=== PATIENT | female | born 1930 | race Caucasian/White ===

== ENCOUNTER 2016-10-07 10:21 | Inpatient (IN) ==
[2016-10-07] MEDS ORDERED: SALINE LOCK IV FLUID XX ONE (12:21)
[2016-10-07 13:21] LABS: HEMATOCRIT 43.8 % (37.0-47.0); HEMOGLOBIN 14.8 g/dL (12.0-16.0); MCHC 33.8 g/dL (33-37); MCV 97.6 FL (81-99); MPV 10.8 FL (7.4-10.4); PLT 237 X1000 (130-400); RBC 4.49 XMIL (4.2-5.4)
[2016-10-07] MEDS: LOVENOX SUBQ SCH (13:45)
[2016-10-07] MEDS: CARDIZEM 100 MG/NS 100 MG/100 ML IVPB IV SCH (13:45)
[2016-10-07 13:46] LABS: AGAP 16; ALBUMIN 3.7 g/dL (3.5-5.0); ALKALINE PHOSPHATASE 73 U/L (32-104); BUN 26 mg/dL (8-22); CHLORIDE 88 mmol/L (98-107); COSMO 266; GOT 14 U/L (10-30); GPT 12 U/L (10-36); POTASSIUM 3.9 mmol/L (3.5-5.1); SODIUM 129 mmol/L (136-145); TCO2 25 mmol/L (25-35); TOTAL BILIRUBIN 1.17 mg/dL (0.20-1.00)
[2016-10-07 13:54] LABS: FREE T4 1.15 ng/dL (0.93-1.70)
[2016-10-07] MEDS ORDERED: SAMSCA PO ONE (13:58)
[2016-10-07] MEDS: LANOXIN IV SCH ×2 (14:53→21:23)
[2016-10-07 17:55] LABS: BANDS 6 % (0-1); LYMPHS 2 % (21-51); MONO 4 % (1-9)
[2016-10-07] MEDS ORDERED: LEVAQUIN 500 MG/D5W 500 MG/100 ML IVPB IV SCH (18:00)
--- NOTE | 2016-10-07 19:27 | Diag Imaging Result Doc PS360 ---
EXAM: CT THORAX W/O CONTRAST - 10/07/2016 HISTORY: pneumonitis TECHNIQUE: Without contrast per request of the referring provider COMPARISON: 11/14/2012 FINDINGS: There are emphysematous changes which are most prominent at the upper lobes, particularly on the right, and at the posterior right lower lobe. 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 There is mild pleural thickening/scarring along the right minor fissure which is stable. There is subsegmental atelectasis at the posterior right base. There is no other consolidation, pleural effusion, or pneumothorax identified. There are no abnormally enlarged mediastinal lymph nodes identified. There is been previous left mastectomy. There is a small cyst at the visualized inferior left lobe of liver similar to the previous exam. IMPRESSION: Emphysema. 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 Subsegmental atelectasis at posterior right base. No discrete pneumonia. Electronically signed by Jericho Guzman 10/07/2016 7:24 PM
--- NOTE | 2016-10-07 19:53 | CONSULTATION ---
DATE OF CONSULTATION: 10/07/2016 INDICATION: Irregular heartbeat, epigastric discomfort. HISTORY: Ms. Blanco presented to Dr. Wheeler's office today with a 4-5 day history of feeling uncomfortable in the stomach, feeling nauseous, having poor balance, feeling like she could not walk straight. Upon presentation to Dr. Wheeler's office, they noted that her pulse was irregular, and a 12-lead electrocardiogram showed atrial fibrillation with a rapid response with a nonspecific ST-T abnormality and a relatively rightward axis. The patient has been admitted to the hospital for management. Intravenous Cardizem has been ordered and is about to be started. The patient denies having any chest pain. The patient denies having fever, cough, denies having swelling of the legs. Denies having syncope. She has felt some palpitations. She has no prior history of arrhythmia. PAST MEDICAL HISTORY: Her past medical history is positive for breast cancer which has been treated surgically and then by followup with Hematology. The patient has history of hypertension. She is not diabetic, never had a stroke or a heart attack. She said that several years ago she was told that she had some valvular abnormality by one of the previous [facility] cardiologists that used to come to [facility]. HOME MEDICATIONS: Her home medications at the time of this admission are listed as: 1. Cromolyn sodium spray daily. 2. Losartan/hydrochlorothiazide 100/12.5. 3. Amlodipine 2.5 daily. ALLERGIES: She has no reported allergies. PAST SURGICAL HISTORY: Positive for mastectomy for breast cancer. SOCIAL HISTORY: She is a . Her of 39 years about 2 years ago. She is presently living in a [facility] community. The patient has 3 grownup children, ages 58 to 64. She used to be a smoker, quit in 1978. The patient used to work in a grocery store, [employer], up until 1974. REVIEW OF SYSTEMS: The patient's review of systems is only remarkable for exertional dyspnea. No other issues. PHYSICAL EXAMINATION: Vital signs: Blood pressure is 96/52, temperature 97.7, pulse 92, respirations 16. General: She is awake, alert, oriented, elderly, in no distress. HEENT: Unremarkable. Chest: Diffusely diminished breath sounds bilaterally. Cardiac: Heart sounds are irregularly irregular without gallop or murmur. GI: Her abdomen is obese, nontender. No masses. No hepatomegaly. Extremities: Show palpable dorsalis pedis pulses bilaterally. No edema. Neurologic: Follows commands. She is slightly hard of hearing. Moves four extremities. Cranial nerves are normal. LABORATORY DATA: White count is 15,280, hemoglobin 14.8. Sodium 129, potassium 3.9, BUN 26, creatinine 1.5. IMPRESSION: 1. Patient presenting to doctor's office with complaint of discomfort in the upper abdomen, nausea, and is found to have an irregular pulse consistent with atrial fibrillation with a rapid response. 2. Abnormal EKG with diffuse ST-T abnormality. 3. Obesity. Body mass index is 33. 4. Patient has long-term history of being a former smoker and previous CT scans of the chest have indicated presence of emphysema. 5. History of hypertension. RECOMMENDATIONS: At this time, I would suggest to continue Cardizem. Because her blood pressure is marginally low, I will give her a few doses of digoxin to try to get her heart rate under control. Her sodium is low and her white count is very high. That might suggest the possibility of concomitant pneumonia. We may have to do some sort of chest imaging study to figure this out. We will discuss with Dr. Wheeler. Thank you again for the opportunity to participate in her evaluation. cc: MD Brandon Tabares MD
[2016-10-07] MEDS: LEVAQUIN 500 MG/D5W 500 MG/100 ML IVPB IV SCH (21:23)
--- NOTE | 2016-10-07 21:36 | Diag Imaging Result Doc PS360 ---
EXAM: CHEST-2 VIEWS - 10/07/2016 HISTORY: leukocytosis, tachycardia TECHNIQUE: Chest two views COMPARISON: 10/01/2016 FINDINGS: Heart size appears upper normal. There is tortuosity of the thoracic aorta similar to the previous exam. There are COPD/emphysematous changes. There is a left lower lung nodule which appears grossly stable. There is mild pleural thickening along the right minor fissure. There is mild prominence of markings at the posterior base of the chest. There is no dense consolidation or pneumothorax identified. IMPRESSION: COPD/emphysematous changes. Left lower lung nodule compatible with the granuloma seen on the subsequent CT scan. Mild pleural thickening along right minor fissure. Mild prominence of markings at posterior base of chest. No discrete pneumonia. Electronically signed by Jericho Guzman 10/07/2016 9:34 PM
[2016-10-08] MEDS: CARDIZEM 100 MG/NS 100 MG/100 ML IVPB IV SCH ×3 (01:11→17:42)
[2016-10-08] MEDS: LANOXIN IV SCH (01:40)
--- NOTE | 2016-10-08 07:19 | EKG Report ---
Test Performed on : 10/08/2016 06:32:16 AM Test Reason : atrial fibrillation Blood Pressure : / mmHG Vent. Rate : 089 BPM Atrial Rate : 102 BPM P-R Int : 000 ms QRS Dur : 090 ms QT Int : 390 ms P-R-T Axes : 000 052 245 degrees QTc Int : [address] \T\ T wave abnormality, consider inferolateral ischemia Prolonged QT Abnormal ECG No previous ECGs available Confirmed by Claudette WALDROP, Abrahan Bender ([id number]) on 10/08/2016 7:58:52 AM
[2016-10-08] MEDS ORDERED: HYZAAR 100/12.5 MG TAB PO SCH (09:00)
[2016-10-08] MEDS ORDERED: NORVASC PO SCH (09:00)
[2016-10-08] MEDS: COZAAR PO SCH (09:13)
--- NOTE | 2016-10-08 09:14 | PROGRESS NOTE ---
DATE: 10/08/2016 CHIEF COMPLAINT: Irregular heartbeat. SUBJECTIVE: Ms. Blanco is feeling better. Heart rate is better controlled on Cardizem. She is still having abdominal pain. Denies any cough. Heart rate appears to be better controlled. OBJECTIVE: Vital signs: Blood pressure 115/53. Temperature 98.2. Pulse 101. Respirations 18. General: She is awake, alert, oriented, in no distress, elderly, in good mood. HEENT: Unremarkable. Chest: Diffusely diminished breath sounds. No wheezes. Cardiac : Heart sounds are irregularly irregular. No gallop or murmur. Abdomen: Tender in the epigastric area. Bowel sounds are diminished. Extremities: Show good pulses. There is no obvious edema. Neurologic: She moves four extremities, follows commands. LABORATORY DATA: Blood work yesterday showed markedly elevated C reactive protein at 285 mg/L and her sedimentation rate was 42. Her differential on the white cell count was 88 % segmented neutrophils and 6% bands, indicating left shift, consistent with an acute infection. IMPRESSION: 1. Patient presenting with acute atrial fibrillation with rapid response, better controlled now. 2. Patient presenting with abdominal pain as initial symptom. Has blood work consistent with an acute infection with intense inflammation. This may indicate an intraabdominal process. Yesterday I obtained a CT scan of the chest that shows evidence of COPD, however, no convincing evidence of pneumonia which was my initial concern. The patient is presently on Levaquin. 3. History of hypertension. 4. History of hypothyroidism. RECOMMENDATIONS: At this time, I would suggest to consider obtaining a CT of the abdomen with contrast and further advice will be forthcoming. I am going to request a stat BMP and magnesium level. Further advice will be forthcoming. cc: MD Brandon Tabares MD [facility]
[2016-10-08 09:31] LABS: CALCIUM 8.5 mg/dL (8.8-10.2); POTASSIUM 3.8 mmol/L (3.5-5.1)
[2016-10-08] MEDS: LOVENOX SUBQ SCH (12:44)
[2016-10-08 12:50] LABS: URINE SOURCE CLEAN CATCH
[2016-10-08 12:57] LABS: BILIRUBIN URINE NEGATIVE (NEGATIVE); BLOOD URINE TRACE (NEGATIVE); COLOR YELLOW; GLUCOSE URINE NEGATIVE (NEGATIVE); LEUKOCYTES URINE MODERATE (NEGATIVE); NITRITE URINE NEGATIVE (NEGATIVE); PROTEIN URINE TRACE mg/dL (NEGATIVE); SP GRAVITY URINE 1.019; TURBIDITY URINE HAZY (CLEAR); URINE MICRO REVIEW NEEDED? YES; UROBILINOGEN URINE 2 mg/dL (NORMAL)
[2016-10-08 12:58] LABS: UR EPITHELIAL CELLS <10 /HPF (<10); URINE BACTERIA 4+ /HPF; URINE CULTURE NEEDED? YES; URINE RBC <10 /HPF (<10); URINE WBC TNTC /HPF (<10)
--- NOTE | 2016-10-08 18:00 | ECHO REPORT ---
ORDER DATE: 10/08/2016 INTERPRETING PHYSICIAN: Dr. Castro REQUESTING PHYSICIAN: CLINICAL INDICATIONS: This is an 86-year-old female with new onset atrial fibrillation. M-MODE MEASUREMENTS: Right ventricle: 2.8 cm. Left ventricle end diastole: 3.4 cm. Left ventricle end systole: 2.2 cm. Posterior wall: 1.2 cm. Interventricular septum: 1.2 cm. Left atrium: 3.9 cm. Aortic root: 3.4 cm. SUMMARY OF 2-DIMENSIONAL IMAGIN. Left ventricular function is normal. Ejection fraction is estimated at 58%. The chamber is not dilated. There is mild degree of concentric LVH. The patient is in atrial fibrillation. Left ventricle appears to be really hyperdynamic. 2. Definity was used to opacify the left ventricular chamber. 3. Right ventricle appears to be normal. 4. Aortic valve looks normal. Color flow mapping is unremarkable. 5. Mitral valve looks normal. Color flow mapping is unremarkable. 6. The pulse wave Doppler of mitral inflow shows a single filling wave. The patient is in atrial fibrillation. 7. Tricuspid valve shows mild degree of regurgitation. 8. Pulmonary pressure is denita, estimated at 29 mmHg. 9. Pulmonic valve looks normal. Color flow mapping is unremarkable. 10.There is no pericardial effusion, mass or thrombus. 11.The atria did not appear to be significantly enlarged. CONCLUSIONS: 1. Normal left ventricular systolic function, somewhat hyperdynamic. 2. No evidence of any significant valvular abnormality. 3. Normal pulmonary pressure. 4. The left atrium in one of the views appears to be moderately enlarged. Please take notice that the study was done with injection of Definity to opacify the left ventricular chamber. Clinical correlation is recommended. cc: MD Brandon Tabares MD
[2016-10-08] MEDS: LEVAQUIN 500 MG/D5W 500 MG/100 ML IVPB IV SCH (20:52)
[2016-10-09] MEDS: CARDIZEM 100 MG/NS 100 MG/100 ML IVPB IV SCH ×2 (01:39→04:46)
[2016-10-09 05:24] LABS: CALCIUM 8.4 mg/dL (8.8-10.2); POTASSIUM 3.6 mmol/L (3.5-5.1)
[2016-10-09 05:26] LABS: BASO% 0.1 % (0.0-0.8); EOS# 0.03 X1000 (0.0-0.7); EOS% 0.2 % (0.0-10.0); HEMATOCRIT 40.5 % (37.0-47.0); HEMOGLOBIN 13.9 g/dL (12.0-16.0); IMM GRAN# 0.07 X1000 (0.0-0.04); IMM GRAN% 0.4 % (0.0-0.5); LYMPH# 0.68 X1000 (1.2-3.4); LYMPH% 4.2 % (20.5-51.1); MANUAL DIFF NEEDED? YES; MCH 32.6 PG (27-31); MCHC 34.3 g/dL (33-37); MCV 94.8 FL (81-99); MONO# 1.57 X1000 (0.11-0.59); MONO% 9.6 % (1.7-9.3); MPV 10.3 FL (7.4-10.4); NEUT% 85.5 % (42.2-75.2); PLT 253 X1000 (130-400); RBC 4.27 XMIL (4.2-5.4)
[2016-10-09 06:09] LABS: BANDS 4 % (0-1); LYMPHS 4 % (21-51); MONO 10 % (1-9)
[2016-10-09] MEDS: ZEBETA PO SCH ×2 (09:55→20:20)
[2016-10-09] MEDS: LEVAQUIN PO SCH (09:56)
[2016-10-09] MEDS: COZAAR PO SCH (09:56)
--- NOTE | 2016-10-09 13:09 | PROGRESS NOTE ---
DATE: 10/09/2016 SUBJECTIVE: The patient relates the abdominal discomfort has improved. She ate a little bit of her lunch today. She is not aware of her atrial fibrillation. She denies any shortness of breath or chest pain. OBJECTIVE: Vital signs: Blood pressure 101/62, heart rate 82 and regular, ECG monitor showing atrial fibrillation with controlled vera response. Neck: There is no significant jugular venous distention. Chest: Clear to auscultation. Cardiac: Exam reveals an irregular rate and rhythm without appreciable murmur or gallop. Abdomen: Soft and nontender. Extremities: Without edema. IMPRESSION: 1. Atrial fibrillation, rate now controlled. Duration not clear. 2. Recent abdominal discomfort, improved. 3. Hypertension. 4. Obesity. 5. Hypothyroidism. RECOMMENDATIONS: 1. Agree with transitioning from intravenous Cardizem to oral beta-merly. 2. When appropriate, would consider anticoagulation for thromboembolic risk with respect to her atrial fibrillation and significant CHADS-VASc score. Will defer this to Dr. Wheeler. 3. For now, would manage with rate control and anticoagulation and follow up patient's atrial fibrillation further as an outpatient. cc: MD Brandon Salcido MD
[2016-10-09] MEDS: LOVENOX SUBQ SCH (13:13)
[2016-10-10] MEDS: ZEBETA PO SCH ×3 (09:21→20:18)
[2016-10-10] MEDS: COZAAR PO SCH (09:22)
[2016-10-10] MEDS: LEVAQUIN PO SCH (09:22)
[2016-10-10] MEDS: LOVENOX SUBQ SCH (13:19)
--- NOTE | 2016-10-10 13:47 | PROGRESS NOTE ---
DATE: 10/10/2016 SUBJECTIVE: The patient's chart was reviewed. In summary, patient was admitted on 10/07/2016 secondary to abdominal discomfort. The patient was found to have a urinary tract infection/pyelonephritis with associated atrial fibrillation with rapid ventricular response. The patient was placed on IV diltiazem and antibiotic therapy. Cardiology was consulted. With IV diltiazem, patient's rate was well controlled. With the addition of levofloxacin, patient's abdominal discomfort and urinary symptoms improved. Yesterday patient was transitioned from IV diltiazem to bisoprolol. Her rate has remained controlled. She was also transitioned from IV to oral levofloxacin. She remains afebrile. Her white blood cell count is trending downward. She denies fevers, chills, nausea, vomiting, shortness of breath, or chest discomfort. Her p.o. intake is adequate. OBJECTIVE: Vital signs: T-max is 98.4 degrees, heart rate 81-105, respirations 16-22, blood pressure 121-137 over 64-82. General: Well nourished, well developed, in no acute distress. Cardiovascular: Irregularly irregular. No significant murmurs, rubs, or gallops. Pulmonary: Crackles at the right base. Abdomen: Soft, nondistended, nontender. Positive bowel sounds. Extremities: Moves all extremities well. No significant clubbing, cyanosis, or edema. Dermatologic: Evaluation reveals no evidence of rash. LABORATORY DATA: White blood cell count 16.32, hemoglobin 13.9, hematocrit 40.5, platelet count 253,000. Sodium 129, potassium 3.6, chloride 90, bicarb 24, BUN 33, creatinine 1.0, glucose 97, calcium 8.4. ASSESSMENT AND PLAN: 1. New onset atrial fibrillation with rapid ventricular response-as above, patient initially was treated with diltiazem and has since transitioned to the beta therapy. Patient's heart rate remains controlled. Appreciate cardiology consultation. We will defer the decision for full anticoagulation to cardiology. 2. Urinary tract infection/pyelonephritis-interestingly, patient's cultures returned negative. I am concerned the patient may have received antibiotics prior to the cultures being drawn. With an improvement in her leukocytosis, we will continue levofloxacin therapy. This will be followed. 3. Leukocytosis-as above, upon admission, white blood cell count was significantly elevated. This has improved, although not returned to baseline. We will continue current levofloxacin treatment. 4. Mild hyponatremia-patient's sodium remains stable. We will follow this. 5. Abnormal pulmonary examination-patient has crackles at the right base. Recent CT scan suggested atelectasis. We will encourage incentive spirometry. 6. Hypertension-we will continue patient on her home medications. 7. Disposition-at this point, patient continues to require [facility] care in a hospital setting. We will plan discharge home once appropriate. cc: MD Brandon Delong MD
--- NOTE | 2016-10-10 18:02 | PROGRESS NOTE ---
DATE: 10/07/2016 SUBJECTIVE: Patient continues without chest discomfort or dyspnea. Abdominal symptoms have improved. OBJECTIVE: Vital Signs: Blood pressure 113/58, heart rate 66 and irregular with ECG monitor showing atrial fibrillation with controlled rate. Neck: There is no significant jugular venous distention. Chest: Clear to auscultation. Cardiac: Exam reveals an irregular rate and rhythm without appreciable murmur or gallop. There is no evidence of peripheral edema. IMPRESSION: 1. Newly discovered atrial fibrillation initially with rapid ventricular rate of unknown duration. Patient now has achieved reasonable controlled heart rate with beta merly. 2. Recent abdominal symptoms, improved. 3. Hypertension. 4. Obesity. RECOMMENDATIONS: 1. Continue beta merly. Titrate for rate control. 2. Would transition to oral anticoagulation utilizing Eliquis 5 mg twice daily as tolerated. 3. Reasonable for patient to be discharged home to have further management as an outpatient and follow up with Dr. Castro. cc: MD Brandon Salcido MD
[2016-10-10] MEDS: ELIQUIS PO SCH ×2 (19:40→20:18)
[2016-10-11 04:58] LABS: MANUAL DIFF NEEDED? NO
[2016-10-11 05:00] LABS: BASO% 0.6 % (0.0-0.8); EOS# 0.14 X1000 (0.0-0.7); EOS% 1.2 % (0.0-10.0); HEMATOCRIT 38.2 % (37.0-47.0); IMM GRAN# 0.43 X1000 (0.0-0.04); IMM GRAN% 3.6 % (0.0-0.5); LYMPH# 1.09 X1000 (1.2-3.4); LYMPH% 9.2 % (20.5-51.1); MCH 32.5 PG (27-31); MCV 95.5 FL (81-99); MONO# 1.48 X1000 (0.11-0.59); MONO% 12.5 % (1.7-9.3); MPV 9.8 FL (7.4-10.4); NEUT% 72.9 % (42.2-75.2); PLT 308 X1000 (130-400)
--- NOTE | 2016-10-11 07:07 | EKG Report ---
Test Performed on : 10/10/2016 06:36:04 AM Test Reason : atrial fibrillation Blood Pressure : / mmHG Vent. Rate : 085 BPM Atrial Rate : 113 BPM P-R Int : 000 ms QRS Dur : 090 ms QT Int : 372 ms P-R-T Axes : 000 056 -77 degrees QTc Int : [address] \T\ T wave abnormality, consider inferior ischemia Abnormal ECG When compared with ECG of 09-OCT-2016 06:19, (Unconfirmed) No significant change was found Confirmed by Claudette WALDROP, Abrahan Bender ([id number]) on 10/12/2016 8:20:12 AM
--- NOTE | 2016-10-11 07:38 | EKG Report ---
Test Performed on : 10/09/2016 06:19:16 AM Test Reason : atrial fibrillation Blood Pressure : / mmHG Vent. Rate : 089 BPM Atrial Rate : 119 BPM P-R Int : 000 ms QRS Dur : 094 ms QT Int : 384 ms P-R-T Axes : 000 062 254 degrees QTc Int : [address] \T\ T wave abnormality, consider inferolateral ischemia Abnormal ECG When compared with ECG of 08-OCT-2016 06:32, No significant change was found Confirmed by Claudette WALDROP, Abrahan Bender ([id number]) on 10/12/2016 8:18:08 AM
[2016-10-11 07:41] VITALS: BP 122/58
[2016-10-11] MEDS: ZEBETA PO SCH (08:14)
[2016-10-11] MEDS: ELIQUIS PO SCH (08:14)
[2016-10-11] MEDS: LEVAQUIN PO SCH (08:14)
[2016-10-11] MEDS: COZAAR PO SCH (08:14)
[2016-10-11] MEDS ORDERED: ZEBETA PO ONE (08:45)
--- NOTE | 2016-10-11 09:06 | DISCHARGE SUMMARY ---
ADMISSION DATE: 10/07/2016 DISCHARGE DATE: 10/11/2016 FINAL DIAGNOSES: 1. New-onset atrial fibrillation with rapid ventricular response. 2. Acute pyelonephritis with leukocytosis. 3. Hyponatremia. 4. Essential hypertension. 5. Personal history of breast cancer. HISTORY OF PRESENT ILLNESS: Mrs. Blanco is an 86-year-old woman who presented to my office on the day of admission with a 5-day history of vague tenderness and aching in the epigastric region associated with reduced appetite and approximately a 7-pound weight loss. She had had some mild nausea, but no diarrhea or vomiting. In the office, she was noted to have a very rapid irregular heartbeat that was new from her recent examination in my office 2 weeks before. PHYSICAL EXAMINATION: Vital Signs: She was afebrile. Blood pressure 145/76, pulse 124. General Appearance: Alert, cooperative, elderly, white female who appears somewhat younger than her stated age, in no acute distress. HEENT: Unremarkable. Neck: Supple with no JVD. Cardiovascular: Rapid, irregularly irregular rhythm with a rate of approximately 125. No murmurs or S3. Abdomen: Soft, mildly obese, and nondistended. Slight right upper and left upper quadrant tenderness. No organomegaly. No guarding or rebound tenderness present. Bowel sounds were active. Extremities: No edema. HOSPITAL COURSE: She was admitted to CICU with a diagnosis of new-onset atrial fibrillation. Routine screening laboratory consisting of CBC and chemistry profile were performed. She unexpectedly had a high white count of 26,000 with a left shift. She had no dysuria or other urinary tract symptoms, but a urinalysis was ordered as well as some intravenous Levaquin. The following day, the urinalysis was noted to have a large number of WBCs. Her culture was subsequently negative, but was obtained after the first dose of antibiotics. She was initially treated with an intravenous diltiazem drip with good rate control, and then after an echocardiogram documented normal left ventricular ejection fraction, she was changed to bisoprolol 5 mg daily. She was seen in consultation by Dr. Castro and Dr. Kraft, cardiologists, who recommended anticoagulation with Eliquis as well as heart rate and blood pressure control. The echocardiogram also documented borderline left atrial enlargement. With treatment of her pyelonephritis, her abdominal pain resolved and her appetite returned. She has been active, walking in the halls for 24 hours, and is eager to return home. Her son is here and will be able to keep an eye on her. She is advised to call my office for a followup appointment in 1 to 2 weeks. DISCHARGE MEDICATIONS: Losartan 100 mg daily, bisoprolol 5 mg daily, levofloxacin 500 mg daily for 7 days, Eliquis 5 mg twice a day. She is to discontinue the Hyzaar due to the hydrochlorothiazide contributing to her hyponatremia. She is also to discontinue Norvasc as I feel the bisoprolol will adequately control her blood pressure with losartan. Her hyponatremia improved with stopping her hydrochlorothiazide. cc: Brandon Wheeler MD MTDD
--- NOTE | 2016-10-11 13:46 | PROGRESS NOTE ---
DATE: 10/09/2016 SUBJECTIVE: Patient says her epigastric pain is much improved. Eating a little bit. No nausea or vomiting. OBJECTIVE: Vital Signs: Blood pressure 100/62, heart rate 82, slightly irregular. Neck: Supple. Trachea midline. Heart: Irregular heartbeat but rate remains in the 80s to 90s. Extremities: Unremarkable. LABORATORY DATA: Unremarkable. IMPRESSIONS: 1. Atrial fibrillation, rate controlled now. 2. Abdominal discomfort, improved. 3. Hypertension. 4. Obesity. 5. Hypothyroidism. RECOMMENDATION: The patient is tolerating a diet. Appetite is improving. She is generally feeling better. I would defer any GI workup at this time but I will decide that tomorrow after I see her again. cc: MD Brandon Clay MD
--- NOTE | 2016-10-11 13:47 | PROGRESS NOTE ---
DATE: 10/10/2016 SUBJECTIVE: Patient is feeling fine. No abdominal discomfort. Eating much better today. No lightheadedness. Going to the bathroom by herself. OBJECTIVE: Vital signs: Temp of 98 degrees, heart rate around 90, respirations 16, blood pressure 120/64. HEENT: No scleral icterus or conjunctival pallor. Neck: Supple. Trachea midline. Heart: Irregular heartbeat. Lungs: Clear. Abdomen: Benign. LABORATORY DATA: White count is still a little high. Hemoglobin and hematocrit are normal. IMPRESSIONS: 1. Epigastric pain, resolved. Eating better. No nausea. 2. New onset atrial fibrillation. 3. New onset urinary tract infection with leukocytosis. 4. Hypertension. PLAN: The patient is clinically doing better from a GI perspective. I am not planning to do any endoscopy. Once the cardiology decides about management and the urinary tract infection is cleared up, will examine the upper gastrointestinal tract if needed. I will talk to Dr. Wheeler after she is discharged. -7 cc: MD Brandon Clay MD
--- NOTE | 2016-10-11 15:07 | CONSULTATION ---
DATE OF CONSULTATION: 10/08/2016 REASON FOR CONSULTATION: Epigastric abdominal pain. HISTORY OF PRESENT ILLNESS: This pleasant lady presented to Dr. Wheeler's office with upper abdominal pain. Has some poor balance and nausea. She was found to have new onset of atrial fibrillation with rapid ventricular response. She was admitted for further evaluation and management. Cardiology consult was called. PAST MEDICAL HISTORY: 1. Breast cancer. 2. Hypertension. 3. Some valvular disease which she is not sure. HOME MEDICATION: Cromolyn sodium spray. Losartan/hydrochlorothiazide 112.5. Amlodipine 2.5 mg daily. ALLERGIES: None. PAST SURGICAL HISTORY: Mastectomy for breast cancer. SOCIAL: She is a . She is living in a [facility] community. She has grownup children. REVIEW OF SYSTEMS: Positive for dyspnea, epigastric pain, lightheadedness and feeling dizzy. PHYSICAL EXAMINATION: Vital Signs: Blood pressure 96/52, temperature 97 degrees, pulse 90 by the time I have seen. HEENT: Awake, alert. No distress. HEENT: Mild conjunctival pallor present. Neck: Supple. Trachea in the midline. Heart: Normal. Lungs: Normal. Abdomen: Mildly tender in the epigastrium. Extremities: Unremarkable. LABORATORY DATA: White count 15,000, hemoglobin and hematocrit normal. Sodium 129, creatinine 0.5. ASSESSMENT AND PLAN: 1. Epigastric pain associated with nausea and ataxia. 2. Atrial fibrillation with rapid ventricular response. I am not sure this is causing the problem of deep-seated discomfort in the epigastrium. 3. Obesity. 4. Former smoker. 5. Hypertension. RECOMMENDATION: We will continue the gastrointestinal prophylaxis with Protonix. We will try to advance the diet. Her heart rate is ranging between 90 and 100. She is on Cardizem drip. We will follow her clinically and if we need to, we will do an endoscopy, but I would not until she is controlled and if her rate is controlled and she is feeling better, there is no need to do any endoscopy at this time. cc: MD Brandon Clay MD
[2016-10-12] MEDS ORDERED: ZEBETA PO SCH (09:00)
== END 2016-10-11 09:30 | disposition home or self-care (01) ==
LOC: DIRADM 10:21 → 3S 12:04
PROVIDERS: ADMIT Internal Medicine; ATTEND Internal Medicine

== ENCOUNTER 2018-08-31 13:07 | Inpatient (IN) ==
--- NOTE | 2018-08-31 14:25 | PROVIDER DOCUMENTATION ---
HPI-Respiratory General - General Chief Complaint: Shortness of Breath Stated Complaint: PLEURISY Time Seen by Provider: 08/31/18 14:05 Allergies/Adverse Reactions: Patient Allergies Allergy/AdvReac Type Severity Reaction Status Date / Time aspirin Allergy ITCHING Verified 08/31/18 13:43 codeine Allergy SHORTNESS Verified 08/31/18 13:43 OF BREATH Sulfa (Sulfonamide Allergy ANAPHYLAXIS Verified 08/31/18 13:43 Antibiotics) Home Medications: Home Medication List Medication Instructions Recorded Confirmed Last Taken Type Cromolyn Sodium [Nasal Allergy 1 spray INH DAILY 10/07/16 10/07/16 Unknown History [place]] Apixaban [Eliquis] 5 mg PO BID #60 tablet 10/11/16 Unknown Rx Bisoprolol [Zebeta] 5 mg PO DAILY #30 tablet 10/11/16 Unknown Rx Levofloxacin [Levaquin] 500 mg PO DAILY #7 tablet 10/11/16 Unknown Rx Losartan [Cozaar] 100 mg PO DAILY #30 tablet 10/11/16 Unknown Rx - History of Present Illness-Resp Nature of Presenting Problem: reports havign sob frequently. history of asthma, AF, . no fever or chills. also complaint of chest pain radiated to the back lasts 10 mins. nausea no vomiting. +lower extremity swelling. and no other sx reports. Review of Systems - Adult - REVIEW OF SYSTEMS - ADULT Constitutional: reports: see HPI Eyes: reports: no symptoms reported Ears, Nose, Mouth & Throat: reports: no symptoms reported Cardiovascular: reports: no symptoms reported Respiratory: reports: no symptoms reported Gastrointestinal: reports: no symptoms reported Genitourinary: reports: no symptoms reported Musculoskeletal: reports: no symptoms reported Integumentary: reports: no symptoms reported Neurological: reports: no symptoms reported Psychiatric: reports: no symptoms reported Endocrine: reports: no symptoms reported Hematologic/Lymphatic: reports: no symptoms reported Allergic/Immunologic: reports: no symptoms reported All Other Systems: Reviewed and Negative Past History - Adult - PAST MEDICAL HISTORY-ADULT Review of Records: reports: Old Records Reviewed Major Childhood Illnesses: reports: denies history Cardiovascular: reports: A-Fib Respiratory: reports: asthma Gastrointestinal: reports: denies history Obstetrical/Gynecological: reports: denies history Genitourinary: reports: denies history Musculoskeletal: reports: denies history Neurological: reports: denies history Endocrine/Immune: reports: denies history Other Conditions: reports: denies history - PRIOR SURGERIES/PROCEDURES Surgical/Procedure History: reports: other (left breast masectomy) - IMMUNIZATION STATUS Childhood Immunizations: UTD - SOCIAL HISTORY Smoking: denies Substance Use: none/never Alcohol Use Frequency: never Living Situation: alone Physical Exam-General - PHYSICAL EXAM-ADULT Initial Vital Signs Reviewed: Yes - CONSTITUTIONAL General Appearance: alert, no apparent distress, mild distress - EYES Eyes: PERRL/EOMI, pink conjunctivae - HEAD, EARS, NOSE, MOUTH & THROAT HENMT: normocephalic/atraumatic, moist mucous membranes - NECK Neck: non-tender, full range of motion - RESPIRATORY Respiratory: chest non-tender, decreased breath sounds, accessory muscle use - CARDIOVASCULAR Cardiovascular: normal peripheral pulses, tachycardia - GASTROINTESTINAL (ABDOMEN) Abdominal Exam: soft, other (epigastric tenderness.) - MUSCULOSKELETAL Back Exam: normal inspection, no CVA tenderness, no vertebral tenderness Extremity: normal range of motion, non-tender, normal gait - SKIN Integumentary: normal color, normal turgor, swelling (pitting edema b/l lower legs) - NEUROLOGIC Neurologic: grossly normal, no motor/sensory deficits - PSYCHIATRIC Psych/Mental Status: normal mood/affect, normal thought content, normal thought process, oriented x 3 - HEART Score HEART Score: History: Slightly Suspicious HEART Score: ECG: Normal HEART Score: Age: > or = 65 Years HEART Score: Risk Factors for Atherosclerotic Disease: 1 or 2 Risk Factors HEART Score: Troponin: < or = Normal Limit Total HEART Score:: 3 Progress - PLAN OF CARE/RESULTS Progress/Plan/Lab Results: Vital Signs - 8 hr 08/31/18 13:15 Temperature 98.2 F Pulse Rate 102 H Respiratory Rate 18 Blood Pressure 128/80 O2 Sat by Pulse Oximetry 95 Laboratory Results - last 24 hr 08/31/18 08/31/18 08/31/18 14:15 14:15 14:15 WBC 8.68 RBC 4.65 Hgb 14.6 Hct 43.5 MCV 93.5 MCH 31.4 H MCHC 33.6 RDW Std Deviation 14.3 Plt Count 210 MPV 10.4 Immature Gran % (Auto) 0.3 Neut % (Auto) 78.5 H Lymph % (Auto) 10.3 L Ashley % (Auto) 9.9 H Eos % (Auto) 0.8 Baso % (Auto) 0.2 Immature Gran # (Auto) 0.03 Neut # (Auto) 6.81 H Lymph # (Auto) 0.89 L Ashley # (Auto) 0.86 H Eos # (Auto) 0.07 Baso # (Auto) 0.02 PT INR PTT (Actin FS) Sodium 134 L Potassium 4.5 Chloride 96 L Carbon Dioxide 28 Anion Gap 10 BUN 17 Creatinine 0.9 Estimated GFR/1.73 m2 59 BUN/Creatinine Ratio 19 Glucose 109 H Calculated Osmolality 270 Calcium 8.3 L Total Bilirubin 0.50 AST 18 ALT 15 Alkaline Phosphatase 81 Creatine Kinase 48 Troponin T [id number] Pept 1287 H Total Protein 6.0 L Albumin 3.8 Globulin 2.2 Albumin/Globulin Ratio 1.7 Lipase 08/31/18 08/31/18 08/31/18 14:15 14:15 14:15 WBC RBC Hgb Hct MCV MCH MCHC RDW Std Deviation Plt Count MPV Immature Gran % (Auto) Neut % (Auto) Lymph % (Auto) Ashley % (Auto) Eos % (Auto) Baso % (Auto) Immature Gran # (Auto) Neut # (Auto) Lymph # (Auto) Ashley # (Auto) Eos # (Auto) Baso # (Auto) PT 14.9 INR 1.09 PTT (Actin FS) 29.1 Sodium Potassium Chloride Carbon Dioxide Anion Gap BUN Creatinine Estimated GFR/1.73 m2 BUN/Creatinine Ratio Glucose Calculated Osmolality Calcium Total Bilirubin AST ALT Alkaline Phosphatase Creatine Kinase Troponin T < 0.010 Msh-P-Gfeertlpybs Pept Total Protein Albumin Globulin Albumin/Globulin Ratio Lipase 26 Orders Category Date Time Status Cardiac Monitoring DIRECTED Care 08/31/18 14:07 Active Oxygen Therapy- ED Nursing DIRECTED Care 08/31/18 14:07 Active Saline Loc NOW Care 08/31/18 14:07 Active cxr [CHEST-2 VIEWS] [RAD] Stat Exams 08/31/18 14:06 Completed CBC WITH ELECTRONIC DIFF [HEME] Stat Lab 08/31/18 14:15 Completed CK PROFILE [SP CHEM] Stat Lab 08/31/18 14:15 Completed COMPREHENSIVE METABOLIC PANEL [CHEM] Stat Lab 08/31/18 14:15 Completed LIPASE [CHEM] Stat Lab 08/31/18 14:15 Completed PRO B-NATRIURETIC PEPTIDE Stat Lab 08/31/18 14:15 Completed PROTIME WITH INR [COAG] Stat Lab 08/31/18 14:15 Completed PTT [COAG] Stat Lab 08/31/18 14:15 Completed TROPONIN T Stat Lab 08/31/18 14:15 Completed Albuterol 2.5MG/Ipratrop 0.5MG [Duoneb (A & A)] Med 08/31/18 14:26 Discontinued 3 ml INH NOW ONE Furosemide [Lasix] Med 08/31/18 15:29 Discontinued 40 mg IV NOW ONE Pantoprazole [Protonix] Med 08/31/18 15:34 Discontinued 40 mg IV NOW ONE Sodium Chloride 0.9% Med 08/31/18 15:34 Discontinued 10 ml INJ NOW ONE Aerosol Treatments Routine Oth 08/31/18 14:26 Active Aerosol Treatments Stat Oth 08/31/18 14:26 Active CP/SOB/Palp >45 yrs of Age Stat Oth 08/31/18 14:06 Ordered EKG [EKG] Stat Ther 08/31/18 13:30 Ordered [facility] [address] [place] [address] [address], [place] [address] Department of Imaging Patient: MATTHEW OBRIEN ADM Date: 08/31/18 MR#: [id number] : 1930 ADM Status: PRE ER Age/Sex: 88/F Room/Bed: Loc: ED Ordering Physician: Gretta Mccallum MD Family Physician: Brandon Wheeler MD Reason for Procedure: sob Signed EXAM: CHEST-2 VIEWS 08/31/2018 HISTORY: sob TECHNIQUE: PA and lateral chest COMMENT: There is cardiomegaly. There is some fluid in the minor fissure. The lungs are slightly better expanded than on 08/10/2017. There is a nodular opacity laterally on the left probably in the lower lobe which has not changed since the previous study. IMPRESSION: Cardiomegaly. Small right pleural effusion. Otherwise stable since 08/10/2017. Electronically signed by Anjel Abdi 08/31/2018 2:27 PM 08/31/18 1427 Interpreting Physician: Anjel Abdi MD Dictated Date/Time: 08/31/18 1426 cc: Gretta Mccallum MD; Brandon Wheeler MD Result Diagrams: 08/31/18 14:15 08/31/18 14:15 - EKG 1 Time of EKG reading by physician:: 13:27 EKG Read and Signed by:: Bora Kirk EKG Interpretation (*Must complete 3 of following elements*): Abnormal Rate: 101 Rhythm: afib rvr QRS: normal ST Wave: non-specific ST changes - CONSULTS/PCP/HOSPITALIST Notification #1 *Consult/PCP/Hospitalist*: Dr. Wheeler Departure - Departure Date of Disposition Decision: 08/31/18 Time of Disposition Decision: 15:38 DIAGNOSIS: Atrial fibrillation, CHF (congestive heart failure), Pleural effusion on right Disposition: ADMITTED INPATIENT 09 Certified Medical Emergency: Emergent Condition: Stable Referrals and Follow-Ups: Brandon Wheeler MD [Primary Care Provider] - - Critical Care Note This patient required my direct & personal management of CC.: No Attestation - Physician/ ANTOINETTE Attestation The physician spent face to face time with patient:: Yes Advanced Practice Provider documentation review:: Supervising physician onsite and consulted in the evaluation and care of this patient. The physician did have a face to face encounter with the patient.
[2018-08-31] MEDS ORDERED: DUONEB (A & A) INH ONE (14:26)
[2018-08-31 14:29] LABS: BASO# 0.02 X1000 (0.0-0.2); BASO% 0.2 % (0.0-0.8); EOS# 0.07 X1000 (0.0-0.7); EOS% 0.8 % (0.0-10.0); HEMATOCRIT 43.5 % (37.0-47.0); HEMOGLOBIN 14.6 g/dL (12.0-16.0); IMM GRAN# 0.03 X1000 (0.0-0.04); IMM GRAN% 0.3 % (0.0-0.5); LYMPH# 0.89 X1000 (1.2-3.4); LYMPH% 10.3 % (20.5-51.1); MCH 31.4 PG (27-31); MCHC 33.6 g/dL (33-37); MCV 93.5 FL (81-99); MONO# 0.86 X1000 (0.11-0.59); MONO% 9.9 % (1.7-9.3); MPV 10.4 FL (7.4-10.4); NEUT# 6.81 X1000 (1.4-6.5); NEUT% 78.5 % (42.2-75.2); PLT 210 X1000 (130-400); RBC 4.65 XMIL (4.2-5.4); RDW 14.3 % (11.5-14.5); WBC 8.68 X1000 (4.8-10.8)
--- NOTE | 2018-08-31 14:30 | Diag Imaging Result Doc PS360 ---
EXAM: CHEST-2 VIEWS 08/31/2018 HISTORY: sob TECHNIQUE: PA and lateral chest COMMENT: There is cardiomegaly. There is some fluid in the minor fissure. The lungs are slightly better expanded than on 08/10/2017. There is a nodular opacity laterally on the left probably in the lower lobe which has not changed since the previous study. IMPRESSION: Cardiomegaly. Small right pleural effusion. Otherwise stable since 08/10/2017. Electronically signed by Anjel Abdi 08/31/2018 2:27 PM
[2018-08-31 14:39] LABS: INR 1.09; PROTIME 14.9 Seconds (11.0-16.0)
[2018-08-31 14:40] LABS: PTT 29.1 Seconds (22.3-41.8)
[2018-08-31 15:09] LABS: ALB/GLOB RATIO 1.7; ALBUMIN 3.8 g/dL (3.5-5.0); CALCIUM 8.3 mg/dL (8.8-10.2); CREATININE 0.9 mg/dL (0.5-0.9); POTASSIUM 4.5 mmol/L (3.5-5.1); TOTAL BILIRUBIN 0.5 mg/dL (0.20-1.00)
[2018-08-31] MEDS ORDERED: LASIX IV ONE (15:29)
[2018-08-31] MEDS ORDERED: SODIUM CHLORIDE 0.9% INJ ONE (15:34)
[2018-08-31] MEDS ORDERED: PROTONIX IV ONE (15:34)
--- NOTE | 2018-08-31 15:43 | EKG Report ---
Test Performed on : 08/31/2018 1:15:50 PM Test Reason : SOB Blood Pressure : / mmHG Vent. Rate : 101 BPM Atrial Rate : 093 BPM P-R Int : 000 ms QRS Dur : 078 ms QT Int : 348 ms P-R-T Axes : 000 033 047 degrees QTc Int : 451 ms Atrial fibrillation. with rapid ventricular response. Nonspecific ST and T wave abnormality Abnormal ECG When compared with ECG of 10-OCT-2016 06:36, No significant change was found Unconfirmed Result
[2018-08-31] MEDS: ALBUTEROL NEB INH SCH (20:24)
[2018-08-31] MEDS: CARDIZEM LA PO SCH (21:05)
--- NOTE | 2018-09-01 01:48 | HISTORY AND PHYSICAL ---
CHIEF COMPLAINT: Cough, shortness of breath and pleurisy pain. PRESENT ILLNESS: Mrs. Blanco is an 88-year-old woman with a history of chronic atrial fibrillation, hypertension, hypothyroidism and a right mastectomy for breast cancer. She presented to my office a little over 3 weeks ago with pleuritic chest pain which started in her lower thoracic spine and then moved around to the anterior costal margin. She denied any fever or chills. She has minimal dry cough and no shortness of breath. She is on Xarelto for chronic atrial fibrillation and I have avoided the use of typical nonsteroidals, but did prescribe 2 weeks of celecoxib 100 mg daily. This apparently only partially relieved her chest pain and approximately a week ago she went to urgent care and had a chest x-ray done. She was told this indicated some pneumonia. The report that I received had mentioned mild cardiomegaly and some atelectasis. She presented to the emergency room today with complaints of "I'm just not any better." She did today complain of some shortness of breath and generalized weakness. She has had some mild orthopnea at home. She has mild pedal edema. Her EKG showed atrial fibrillation with a heart rate of approximately 109 and her chest x-ray today again shows cardiomegaly with fluid in the minor fissure. There is a nodular opacity in the left lower lobe which is unchanged from over a year ago. She is admitted for treatment of congestive heart failure. She had an echocardiogram in 2017 which showed a normal left ventricular ejection fraction. PAST MEDICAL HISTORY: Remarkable for hypertension, hypothyroidism and chronic atrial fibrillation. PAST SURGICAL HISTORY: She has a remote history of cholecystectomy, left mastectomy and orthopedic repair of a left ankle fracture. HOME MEDICATIONS: Caltrate 1 daily, Centrum Silver 1 daily, fish oil 1000 mg 1 daily, Xarelto 10 mg daily, albuterol HFA 2 puffs 4 times a day as needed for cough or wheezing, bisoprolol 5 mg daily, levothyroxine 75 mcg daily and losartan 100 mg daily. ALLERGIES: She is allergic to sulfa drugs and codeine. SOCIAL HISTORY: She is a and lives alone. One son and some grandchildren live locally. She is a former smoker of 1/2 pack per day for 10 years but quit in 1978. FAMILY HISTORY: Her mother of cancer. Father also had cancer. REVIEW OF SYSTEMS: Constitutional: No fever, chills, night sweats, weight loss. HEENT: Vision and hearing are unremarkable without recent changes. Cardiovascular: She denies chest pain, diaphoresis, palpitations, syncope or near syncope. Respiratory: Moderate cough. Occasional chest congestion and shortness of breath. She has some orthopnea and occasional wheezing. Gastrointestinal: Appetite is good. No nausea, vomiting, diarrhea, heartburn, melena or bright red blood per rectum. Genitourinary: No dysuria. Patient does have a history of asymptomatic bacteriuria. Musculoskeletal: Rare stiffness of her left ankle, otherwise asymptomatic. Psychiatric: No memory, mood or thought disorders. Endocrine: No history of diabetes. PHYSICAL EXAMINATION: VITAL SIGNS: Temperature 98.2, blood pressure 142/91, pulse is 96, respirations 20, O2 saturation 98% on room air. GENERAL APPEARANCE: A tall, obese elderly white female reclining on a stretcher in no acute distress. HEENT: Pupils equal, round, reactive to light. Extraocular movements intact. Oropharynx is benign. NECK: Supple with moderate JVD during exhalation. There are no carotid bruits or lymphadenopathy appreciated. CARDIOVASCULAR: She had irregular irregular rhythm with a rate of 90-110. No murmurs or gallops. LUNGS: Clear in the upper lobes. A few moist crackles are heard in both bases. Breath sounds are otherwise symmetric. ABDOMEN: Obese, soft and nontender. No organomegaly is appreciated. Bowel sounds are normally active. EXTREMITIES: Good muscle mass. There is mild ankle edema at both ankles. No stasis changes. DERMATOLOGIC: No rash or other lesions. No jaundice. NEUROLOGIC: She is alert. Clear speech and a normal mental status. Moves all extremities on command. Gait is not tested. ASSESSMENT: 1. Acute congestive heart failure, most likely diastolic in origin. 2. Longstanding essential hypertension, generally well controlled. 3. Personal history of breast cancer. 4. Hypothyroidism, replaced. TREATMENT PLAN: We will admit. Treat with IV Lasix and a few albuterol treatments. I doubt there is significant underlying bronchospasm. Her chest x-ray looks much more like early heart failure. Her ventricular rate is variable but we will hold bisoprolol temporarily and use some Cardizem to treat her heart rate. I have ordered an echocardiogram and cardiology consult. She will be continued on Xarelto. cc: Brandon Wheeler MD [facility]
[2018-09-01] MEDS: ALBUTEROL NEB INH SCH ×3 (03:27→15:50)
[2018-09-01] MEDS ORDERED: LASIX IV ONE (06:00)
[2018-09-01 06:39] LABS: URINE SOURCE CLEAN CATCH
[2018-09-01 06:42] LABS: BILIRUBIN URINE NEGATIVE (NEGATIVE); BLOOD URINE NEGATIVE (NEGATIVE); COLOR YELLOW; GLUCOSE URINE NEGATIVE (NEGATIVE); KETONE URINE NEGATIVE (NEGATIVE); LEUKOCYTES URINE NEGATIVE (NEGATIVE); NITRITE URINE NEGATIVE (NEGATIVE); PH URINE 6.5; PROTEIN URINE NEGATIVE (NEGATIVE); SP GRAVITY URINE 1.003; TURBIDITY URINE CLEAR (CLEAR); UROBILINOGEN URINE NORMAL (NORMAL)
[2018-09-01 06:44] LABS: UR EPITHELIAL CELLS <10 /HPF (<10); URINE BACTERIA 4+ /HPF; URINE RBC <10 /HPF (<10); URINE WBC <10 /HPF (<10)
[2018-09-01 08:20] LABS: CALCIUM 9.1 mg/dL (8.8-10.2); CREATININE 0.9 mg/dL (0.5-0.9); POTASSIUM 3.6 mmol/L (3.5-5.1)
[2018-09-01] MEDS ORDERED: TYLENOL PR PRN (08:37)
[2018-09-01] MEDS: CARDIZEM LA PO SCH ×2 (08:51→19:59)
[2018-09-01] MEDS: SYNTHROID PO SCH (08:51)
[2018-09-01] MEDS: HYZAAR 100/12.5 MG TAB PO SCH (08:51)
[2018-09-01] MEDS: XARELTO PO SCH (08:51)
[2018-09-01] MEDS: NORCO-7.5 PO PRN ×4 (10:23→21:32)
--- NOTE | 2018-09-01 10:51 | Diag Imaging Result Doc PS360 ---
EXAM: MRI THORACIC SPINE W/O CON HISTORY: VCF T6? TECHNIQUE: MRI thoracic spine without contrast COMPARISON: None. FINDINGS: Axial and sagittal images obtained in multiple sequences. There is collapse of the T6 vertebra. No edema within this. The posterior vertebral body is posteriorly displaced causing at least moderate spinal stenosis and cord compression. There is a small amount of edema superiorly within the T7 vertebra with minimal loss of height of the superior endplate. Old superior endplate compression fracture to the T8 vertebra. No other fractures. No subluxation. No disc herniation. IMPRESSION: 1.The T6 fracture does not appear to be acute, however, it does cause at least moderate and possibly severe spinal stenosis with cord compression 2.Recent mild superior endplate compression fracture to the T7 vertebra 3.Old superior endplate compression fracture to the T8 vertebra Electronically signed by Morgan Rojas 09/01/2018 10:49 AM
[2018-09-01] MEDS ORDERED: ALBUTEROL NEB INH PRN (18:11)
[2018-09-02] MEDS ORDERED: LASIX IV ONE (06:00)
[2018-09-02 07:25] LABS: MAGNESIUM 2.1 mg/dL (1.5-2.7); POTASSIUM 3.9 mmol/L (3.5-5.1)
[2018-09-02] MEDS: XARELTO PO SCH ×2 (07:56→11:10)
[2018-09-02] MEDS: NORCO-7.5 PO PRN ×2 (07:57→12:26)
[2018-09-02] MEDS: SYNTHROID PO SCH ×2 (07:57→11:10)
[2018-09-02] MEDS: HYZAAR 100/12.5 MG TAB PO SCH ×2 (07:57→11:09)
[2018-09-02] MEDS: CARDIZEM LA PO SCH ×2 (07:57→11:09)
--- NOTE | 2018-09-02 10:42 | DISCHARGE SUMMARY ---
ADMISSION DATE: 08/31/2018 DISCHARGE DATE: 09/02/2018 FINAL DIAGNOSES: 1. T6 vertebral burst fracture with impingement on the spinal cord. 2. Sharp chest pain with respiratory effort. 3. Chronic atrial fibrillation with perhaps mild congestive heart failure. 4. Chronic atrial fibrillation with anticoagulation. 5. Hypothyroidism, replaced. PRESENT ILLNESS: Ms. Blanco is an 88-year old woman with a history of chronic atrial fibrillation, hypertension, hypothyroidism, and a left mastectomy for breast cancer in 2004. She presented to my office on 08/08/2018 with pleuritic chest pain. She had a minimal cough. No shortness of breath, fever, or chills. She was felt to have a viral pleurisy and prescribed 2 weeks' worth of low dose Celebrex. Due to minimal pain relief she returned to [facility] on 08/12/2018 and had a chest x-ray done which did note a wedge compression fracture of the T6 vertebra. She was treated with some antibiotics. She presented to the Emergency Room on the day of admission with persistent pleuritic chest pain associated with some mild shortness of breath and generalized weakness and mild orthopnea. Her EKG documented atrial fibrillation with a heart rate of 109 and a repeat chest x-ray showed somewhat increased collapse of the T6 vertebra and mild cardiomegaly with fluid in the minor fissure and perhaps a tiny right pleural effusion. She has a nodular density in the left lower lung field which is unchanged from over a year ago. The T6 vertebral compression fracture was not present on the chest x-ray of 1 year ago. PHYSICAL EXAMINATION: General Appearance: Physical examination revealed a tall relatively vigorous appearing white female in no acute distress. Neck: Her neck was supple with moderate JVD noted during exhalation. Cardiovascular: Irregularly irregular rhythm with a rate of 90 to 110. No murmurs or gallops were appreciated. Lungs: Clear in the upper lobes with a few moist crackles heard in both bases. Abdomen: Her abdomen was obese, soft, and nontender. Neurological: She was alert with clear speech and a normal mental status. She moved all extremities on command and no focal weakness was noted. HOSPITAL COURSE: She was admitted with the diagnosis of acute congestive heart failure, most likely diastolic in origin. Cardiology consultation and echocardiogram were requested but due to communication errors apparently were never performed. Thoracic MRI without contrast was performed yesterday and documented fairly marked retropulsion of a fragment of the T6 vertebra with moderate- to-severe spinal stenosis at this level. Orthopaedic consultation was requested and Dr. Yohannes Jean saw her this morning and felt she would benefit from urgent neurosurgical evaluation. Dr. Gordillo has accepted her for transfer her to [facility]. She continues to have a normal neurologic exam. cc: Brandon Wheeler MD [facility]
[2018-09-02 13:42] VITALS: BP 109/62
[2018-09-02] MEDS ORDERED: KEFLEX PO ONE (15:19)
--- NOTE | 2018-09-02 17:13 | ECHO REPORT ---
ORDER DATE: 08/31/2018 INDICATION: CHF. FINDINGS: 1. The right atrium appears normal in size. 2. There is mild tricuspid regurgitation. RV systolic pressure 38. 3. Normal RV size and systolic function. 4. Trace pulmonic insufficiency. 5. Mild left atrial enlargement with a dimension of 4.1 cm. 6. No mitral valve prolapse. There is trace mitral regurgitation. 7. Normal LV size, end-diastolic dimension of 3.5. Normal wall thicknesses with a posterior and interventricular septal wall thickness of 0.9 cm each. Normal LV systolic function. The estimated EF appears to be greater than 55%. There is off axis views as well as poor resolution the endocardial borders. I do not see any clear evidence of significant wall motion abnormalities on this study. 8. Aortic valve opens well. It is trileaflet. No evidence of stenosis or insufficiency. 9. Aorta appears normal in visualized segments. 10. No visualized pericardial effusion on this study. cc: MD Brandon Nieves MD
[2018-09-03] MEDS ORDERED: KEFLEX PO SCH (09:00)
== END 2018-09-02 14:35 | disposition short-term general hospital (02) | DRG 291 ==
LOC: ED 13:07 → EDIPHOLD 19:19 → 3N 09-01 01:28
PROVIDERS: ADMIT Internal Medicine; ATTEND Internal Medicine
CPT/HCPCS: 71020; 71046; 72146; 80048; 80053; 81001; 82550; 83690; 83735; 83880; 84443; 84484; 85025; 85610; 85730; 87077; 87088; 87186; 93005; 93306; 94640; 94761; 96374; 96375; 99285; A9270; C8929; C9113; J1940; Q9957; S0164

== ENCOUNTER 2018-09-21 14:22 | Inpatient (IN) ==
--- NOTE | 2018-09-21 15:19 | Diag Imaging Result Doc PS360 ---
CHEST-2 VIEWS - 09/21/2018 INDICATION: sob,chf COMPARISON: 08/31/2018 FINDINGS: The lungs are clear. Heart size is normal. No pneumothorax or pleural effusion. There is new vertebroplasty cement in the severe compression fracture in the midthoracic spine. No new fractures. IMPRESSION: No acute disease. Electronically signed by Robin Rodriguez 09/21/2018 3:17 PM
[2018-09-21 15:25] LABS: BASO# 0.02 X1000 (0.0-0.2); BASO% 0.2 % (0.0-0.8); EOS# 0.07 X1000 (0.0-0.7); EOS% 0.6 % (0.0-10.0); HEMATOCRIT 43.7 % (37.0-47.0); HEMOGLOBIN 14.4 g/dL (12.0-16.0); IMM GRAN# 0.11 X1000 (0.0-0.04); IMM GRAN% 0.9 % (0.0-0.5); LYMPH# 0.99 X1000 (1.2-3.4); LYMPH% 7.8 % (20.5-51.1); MCH 31.4 PG (27-31); MCV 95.4 FL (81-99); MONO# 0.94 X1000 (0.11-0.59); MONO% 7.4 % (1.7-9.3); MPV 10.7 FL (7.4-10.4); NEUT# 10.59 X1000 (1.4-6.5); NEUT% 83.1 % (42.2-75.2); PLT 211 X1000 (130-400); RBC 4.58 XMIL (4.2-5.4); RDW 14.5 % (11.5-14.5); WBC 12.72 X1000 (4.8-10.8)
--- NOTE | 2018-09-21 15:35 | EKG Report ---
Test Performed on : 09/21/2018 2:30:00 PM Test Reason : sob Blood Pressure : / mmHG Vent. Rate : 104 BPM Atrial Rate : 091 BPM P-R Int : 000 ms QRS Dur : 080 ms QT Int : 338 ms P-R-T Axes : 000 009 -11 degrees QTc Int : 444 ms Atrial fibrillation. with rapid ventricular response. Abnormal ECG When compared with ECG of 21-SEP-2018 14:29, (Unconfirmed) No significant change was found Unconfirmed Result
[2018-09-21 15:56] LABS: ALB/GLOB RATIO 1.5; ALBUMIN 3.8 g/dL (3.5-5.0); CREATININE 0.9 mg/dL (0.5-0.9); POTASSIUM 3.8 mmol/L (3.5-5.1); TOTAL BILIRUBIN 0.67 mg/dL (0.20-1.00); TOTAL PROTEIN 6.4 g/dL (6.3-8.3)
--- NOTE | 2018-09-21 17:01 | Diag Imaging Result Doc PS360 ---
CT ANGIOGRAM THORAX/ABDOMEN - 09/21/2018 INDICATION: VICTORIA, SOB, back pain rule out aortic dissection TECHNIQUE: Axial CT images were obtained after administering intravenous contrast. Three-dimensional angiographic images were generated. COMPARISON: 10/07/2016 FINDINGS: The aorta is normal in caliber. There is no dissection. There is some stable scattered, mainly calcified vascular plaque. No stenosis or aneurysm. The major branch vessels of the aorta are all patent. There is cardiomegaly. No pulmonary embolism. No adenopathy. There is advanced COPD. There is some linear atelectasis bilaterally. No infiltrates or edema. Stable calcified granuloma in the left lower lobe. There are a couple cysts in the liver. There are also stable cholecystectomy clips. Otherwise abdominal soft tissues are normal. No bowel obstruction or inflammation. No free air. There is a high-grade compression fracture in the thoracic spine with vertebroplasty cement inside. This is at T6. There are also numerous other compression fractures throughout the thoracic spine that are very mild, less than 25%. There is advanced spondylosis and rotary scoliosis of the lumbar spine. No definite acute fractures. IMPRESSION: Cardiomegaly. Advanced COPD. Old compression fractures in the spine. No pulmonary embolism or aortic dissection. This exam was performed using automated exposure control, adjustment of mA or kV according to patient size, and/or use of iterative reconstruction technique Electronically signed by Robin Rodriguez 09/21/2018 4:58 PM
[2018-09-21 18:07] LABS: ALLEN TEST NO; BE 6.5 mmoll (-3.0-3.0); BLOOD TYPE ARTERIAL; HCO3-(ACT) 29.9 mmoll (20.0-26.0); METHB 0.9 % (0.0-1.5); O2(CT) 19.1 mL/dL (15.0-23.0); O2HB 94.1 % (95.0-99.0); PCO2(98.6) 44 mmHg (35-45); PO2(98.6) 70 mmHg (60-100); SAMPLE BLOOD; SAO2 95.7 % (95.0-100.0); THB 14.4 g/dL (11.5-17.4); pH(98.6) 7.46 (7.35-7.45)
[2018-09-21 18:08] LABS: MODALITY ROOM AIR
--- NOTE | 2018-09-21 19:02 | PROVIDER DOCUMENTATION ---
This chart was entered by Zulma Rojo Scribe, acting as scribe for Amanda Joseph MD. HPI-Respiratory General - General Chief Complaint: Shortness of Breath Stated Complaint: SOB Time Seen by Provider: 09/21/18 14:38 Source: patient Allergies/Adverse Reactions: Patient Allergies Allergy/AdvReac Type Severity Reaction Status Date / Time aspirin Allergy ITCHING Verified 08/31/18 13:43 codeine Allergy SHORTNESS Verified 08/31/18 13:43 OF BREATH Sulfa (Sulfonamide Allergy ANAPHYLAXIS Verified 08/31/18 13:43 Antibiotics) Home Medications: Home Medication List Medication Instructions Recorded Confirmed Last Taken Type Levothyroxine [Synthroid] 75 microgm PO DAILY 08/31/18 08/31/18 Unknown History Losartan/Hydrochlorothiazide 1 ea PO DAILY 08/31/18 08/31/18 Unknown History [Losartan-Hctz 100-12.5 mg Tab] Rivaroxaban [Xarelto] 10 mg PO DAILY 08/31/18 08/31/18 Unknown History Acetaminophen [Tylenol] 650 mg AL Q4H PRN PRN supp 09/02/18 Unknown Rx Albuterol [Albuterol Neb] 1.25 mg INH Q4H PRN PRN neb 09/02/18 Unknown Rx Diltiazem L.a. [Cardizem LA] 120 mg PO Q12H tab 09/02/18 Unknown Rx Hydrocodone/APAP 7.5 mg/325 mg 1 ea PO Q4H PRN PRN tab 09/02/18 Unknown Rx [Henry-7.5] - History of Present Illness-Resp Nature of Presenting Problem: Patient is a 88 year old female who presents with shortness of breath and swelling to bilateral lower extremities that have been present for 1 month. States having back surgery 1 month ago. History Afib and CHF. Reports she is on Eliquis. Quality of Pain: reports: tightness Severity in ED: reports: mild Onset/Duration: reports: other (1 month) Timing: reports: still present Modifying Factors: improves with: nothing Associated Symptoms: reports: shortness of breath Similar Symptoms Previously?: Yes Recently seen or treated by another doctor?: Yes Review of Systems - Adult - REVIEW OF SYSTEMS - ADULT Constitutional: reports: no symptoms reported. denies: chills, fever, fatique Eyes: reports: no symptoms reported Ears, Nose, Mouth & Throat: reports: no symptoms reported Cardiovascular: reports: no symptoms reported. denies: chest pain, irregular heart rate, orthopnea Respiratory: reports: see HPI, shortness of breath. denies: cough, wheezing Gastrointestinal: reports: no symptoms reported Genitourinary: reports: no symptoms reported Musculoskeletal: reports: no symptoms reported Integumentary: reports: no symptoms reported Neurological: reports: no symptoms reported Psychiatric: reports: no symptoms reported Endocrine: reports: no symptoms reported Hematologic/Lymphatic: reports: no symptoms reported Allergic/Immunologic: reports: no symptoms reported All Other Systems: Reviewed and Negative Past History - Adult - PAST MEDICAL HISTORY-ADULT Review of Records: reports: Nursing Assessment Review, Medications Reviewed, Social history reviewed & non-contributory. Major Childhood Illnesses: reports: denies history Cardiovascular: reports: A-Fib, CHF, HTN, hyperlipidemia Respiratory: reports: asthma Gastrointestinal: reports: denies history Obstetrical/Gynecological: reports: denies history Genitourinary: reports: denies history Musculoskeletal: reports: denies history Neurological: reports: denies history Psychiatric: reports: denies history Endocrine/Immune: reports: thyroid disorder Other Conditions: reports: denies history - PRIOR SURGERIES/PROCEDURES Surgical/Procedure History: reports: reviewed, not pertinent, appendectomy, cholecystectomy, other (left breast masectomy) - IMMUNIZATION STATUS Childhood Immunizations: UTD, See Nurse Assessment Flu Vaccine: See Nurse Assessment - FAMILY HISTORY Family History: reviewed, not pertinent - SOCIAL HISTORY Smoking: cigarettes (former) Substance Use: denies Physical Exam-General - PHYSICAL EXAM-ADULT Initial Vital Signs Reviewed: Yes - CONSTITUTIONAL General Appearance: alert, no apparent distress. negative: lethargic, slow to respond - RESPIRATORY Respiratory: chest non-tender, lungs clear, normal breath sounds. negative: crackles, rhonchi - CARDIOVASCULAR Cardiovascular: normal peripheral pulses, irregularly irregular. negative: systolic murmur - MUSCULOSKELETAL Extremity: other (3 + pitting edema to bilateral lower extremities.). negative: deformity, erythema - SKIN Integumentary: normal color, normal turgor, warm/dry. negative: diaphoresis, ecchymosis, jaundice - NEUROLOGIC Neurologic: grossly normal. negative: aphasia, facial droop - PSYCHIATRIC Psych/Mental Status: normal mood/affect, oriented x 3. negative: anxious Progress - PLAN OF CARE/RESULTS Progress/Plan/Lab Results: Vital Signs - 8 hr 09/21/18 14:25 09/21/18 14:40 09/21/18 15:07 Temperature 97.6 F Pulse Rate 107 H 99 H 98 H Respiratory Rate 20 11 L Blood Pressure 94/56 147/93 O2 Sat by Pulse Oximetry 100 97 09/21/18 15:10 09/21/18 15:20 09/21/18 15:30 Temperature Pulse Rate Respiratory Rate Blood Pressure O2 Sat by Pulse Oximetry 95 93 L 86 L 09/21/18 15:33 09/21/18 15:40 09/21/18 15:50 Temperature Pulse Rate Respiratory Rate Blood Pressure 118/76 O2 Sat by Pulse Oximetry 94 L 92 L 87 L 09/21/18 16:00 09/21/18 16:04 Temperature Pulse Rate Respiratory Rate Blood Pressure 147/93 O2 Sat by Pulse Oximetry 86 L Laboratory Results - last 24 hr 09/21/18 09/21/18 09/21/18 15:05 15:05 15:05 WBC 12.72 H RBC 4.58 Hgb 14.4 Hct 43.7 MCV 95.4 MCH 31.4 H MCHC 33.0 RDW Std Deviation 14.5 Plt Count 211 MPV 10.7 H Immature Gran % (Auto) 0.9 H Neut % (Auto) 83.1 H Lymph % (Auto) 7.8 L Bucks % (Auto) 7.4 Eos % (Auto) 0.6 Baso % (Auto) 0.2 Immature Gran # (Auto) 0.11 H Neut # (Auto) 10.59 H Lymph # (Auto) 0.99 L Bucks # (Auto) 0.94 H Eos # (Auto) 0.07 Baso # (Auto) 0.02 Sodium 138 Potassium 3.8 Chloride 93 L Carbon Dioxide 32 Anion Gap 13 BUN 23 H Creatinine 0.9 Estimated GFR/1.73 m2 59 BUN/Creatinine Ratio 26 Glucose 113 H Calculated Osmolality 280 Calcium 9.0 Total Bilirubin 0.67 AST 16 ALT 15 Alkaline Phosphatase 107 H Troponin T < 0.010 Pir-B-Rygyrzpdaly Pept Total Protein 6.4 Albumin 3.8 Globulin 2.6 Albumin/Globulin Ratio 1.5 09/21/18 15:05 WBC RBC Hgb Hct MCV MCH MCHC RDW Std Deviation Plt Count MPV Immature Gran % (Auto) Neut % (Auto) Lymph % (Auto) Bucks % (Auto) Eos % (Auto) Baso % (Auto) Immature Gran # (Auto) Neut # (Auto) Lymph # (Auto) Bucks # (Auto) Eos # (Auto) Baso # (Auto) Sodium Potassium Chloride Carbon Dioxide Anion Gap BUN Creatinine Estimated GFR/1.73 m2 BUN/Creatinine Ratio Glucose Calculated Osmolality Calcium Total Bilirubin AST ALT Alkaline Phosphatase Troponin T Hvr-Q-Zuumzgourda Pept 1144 H Total Protein Albumin Globulin Albumin/Globulin Ratio Orders Category Date Time Status Cardiac Monitoring DIRECTED Care 09/21/18 14:[address] ANGIOGRAM THORAX/ABDOMEN [CT] Stat Exams 09/21/18 16:10 Completed cxr [CHEST-2 VIEWS] [RAD] Stat Exams 09/21/18 14:40 Completed ABG [RESP] Routine Lab 09/21/18 17:28 Ordered BNP [PRO B-NATRIURETIC PEPTIDE] Stat Lab 09/21/18 15:05 Completed CBC WITH ELECTRONIC DIFF [HEME] Stat Lab 09/21/18 15:05 Completed CMP [COMPREHENSIVE METABOLIC PANEL] [CHEM] Stat Lab 09/21/18 15:05 Completed TROPONIN T Stat Lab 09/21/18 15:05 Completed EKG [EKG] Stat Ther 09/21/18 14:41 Draft Transfer/Admit Order [TRANSFER] Routine Transfer 09/21/18 17:29 Ordered Patient SPO2 dropped to 83-84 upon movement in the bed, need admission, optimize medication and likely walking study and home oxygen. Discussed patient care with Dr. Wheeler. Result Diagrams: 09/21/18 15:05 09/21/18 15:05 - EKG 1 Time of EKG reading by physician:: 14:30 EKG Read and Signed by:: Jersey Lopez EKG Interpretation (*Must complete 3 of following elements*): Abnormal Rate: 104 Rhythm: atrial fibrillation with rapid ventricular response Comments: abnormal ECG - XRAY 1 XRAY Study: Chest Impression: See EMR Report (CHEST-2 VIEWS - 09/21/2018 INDICATION: sob,chf COMPARISON: 08/31/2018 FINDINGS: The lungs are clear. Heart size is normal. No pneumothorax or pleural effusion. There is new vertebroplasty cement in the severe compression fracture in the midthoracic spine. No new fractures. IMPRESSION: No acute disease. Electronically signed by Robin Rodriguez 09/21/2018 3:17 PM 09/21/18 1517 Interpreting Physician: Robin Rodriguez MD Dictated Date/Time: 09/21/18 1516 cc: Amanda Loja MD; Brandon Wheeler MD) - CONSULTS/PCP/HOSPITALIST Notification #1 *Consult/PCP/Hospitalist*: Dr. Wheeler Time Discussed: 17:21 Consult Disposition: Admit (Hx, PE and patient care discussed in the ER, accepted.) Departure - Departure Date of Disposition Decision: 09/21/18 Time of Disposition Decision: 17:46 DIAGNOSIS: SOB (shortness of breath), Respiratory distress Disposition: ADMITTED INPATIENT 09 Certified Medical Emergency: Emergent Condition: Stable Referrals and Follow-Ups: Brandon Wheeler MD [Primary Care Provider] - - Critical Care Note This patient required my direct & personal management of CC.: No Attestation - Physician/ ANTOINETTE Attestation Patient care was provided by Advanced Practice Provider:: No The physician spent face to face time with patient:: Yes Advanced Practice Provider documentation review:: Supervising physician onsite and consulted in the evaluation and care of this patient. The physician did have a face to face encounter with the patient. This chart was documented by the indicated scribe, (Zulma Rojo Scribe) and ac curately reflects the services I performed and decisions made by me, Amanda Joseph MD, as attested by the provider's signature.
[2018-09-21] MEDS ORDERED: LASIX IV ONE (20:42)
[2018-09-21] MEDS: ALBUTEROL NEB INH SCH (21:15)
--- NOTE | 2018-09-21 21:18 | HISTORY AND PHYSICAL ---
CHIEF COMPLAINT: Low oxygen at home. HISTORY OF PRESENT ILLNESS: Ms. Blanco is an 88-year-old woman with a history of chronic atrial fibrillation, hypertension, hypothyroidism and previous right mastectomy for breast cancer. She presented to the emergency room today after home health found her oxygen saturation at home at approximately 80% on 2 L of nasal cannula oxygen. Approximately 2 to 2-1/2 weeks ago she underwent kyphoplasty of the T6 vertebra at [facility] and has experienced minimal pain relief from this procedure. She was apparently discharged on oxygen, although she had no shortness of breath or need for oxygen prior to this admission. She also has noted some generalized weakness and occasional orthopnea. She has a long history of mild pedal edema. EKG today shows atrial fibrillation with a controlled rate of 100 to 106. Her chest x-ray today looks somewhat improved with less fluid in the minor fissure and new cement in the T6 vertebral body. She had an echocardiogram 2 years ago which showed normal left ventricular function. PAST MEDICAL HISTORY: As above. PAST SURGICAL HISTORY: Remote cholecystectomy, left mastectomy and orthopaedic repair of a left ankle fracture. HOME MEDICATIONS: Xarelto 10 mg daily, diltiazem 120 mg twice a day, levothyroxine 75 mcg daily, losartan HCT daily. ALLERGIES: Allergic to sulfa drugs and codeine. SOCIAL HISTORY: She is a and lives alone. She smoked one-half pack per day for 10 years but quit approximately 40 years ago. FAMILY HISTORY: Both her parents of cancer years ago. REVIEW OF SYSTEMS: CONSTITUTIONAL: No fever, chills, night sweats or weight loss. HEENT: Vision and hearing are unremarkable, without recent changes. CARDIOVASCULAR: Denies chest pain, diaphoresis, palpitations, or syncope. RESPIRATORY: Occasional cough, minimal sputum production, rare chest congestion, but almost daily shortness of breath. She does endorse some orthopnea and occasional wheezing at night. GI: Good. No nausea, vomiting, diarrhea, melena or bright red blood per rectum. : No dysuria. MUSCULOSKELETAL: Back pain which has been fairly constant for the past 5-6 weeks. PSYCHIATRIC: No memory, mood or thought disorders. ENDOCRINE: No history of diabetes. PHYSICAL EXAMINATION: VITAL SIGNS: Temperature 97.6, pulse 98, respirations 11, blood pressure 147/93, O2 saturation 86% on room air. HEENT: Pupils equal, round, and reactive to light. Extraocular movements intact. Oropharynx is benign. NECK: Supple with questionable JVD and no adenopathy or thyromegaly. LUNGS: Generally clear with no wheezes or crackles. CARDIOVASCULAR: Regular rate and rhythm with no S3 or murmurs. ABDOMEN: Soft and nontender with active bowel sounds. EXTREMITIES: Trace ankle edema. DIAGNOSTIC DATA: CT pulmonary arteriogram showed no pulmonary emboli and no other thoracic findings of consequence. Chest x-ray likewise was fairly unremarkable. CBC is normal. Chemistry profile was remarkable for a CO2 of 32, glucose of 113. ProBNP was 1144. ASSESSMENT: 1. Variable hypoxemia. While totally at rest, her room air oxygen saturation rises to 94%, but when she talks or moves, it drops to the mid-80s, sometimes lower. I will get an ABG to verify this on room air. 2. Chronic atrial fibrillation with suspected diastolic congestive heart failure which may be contributing to her hypoxemia. 3. History of chronic obstructive pulmonary disease, but she seems relatively well compensated at the present time. TREATMENT PLAN: Admit for diuresis and [id number] nebulizer treatments and low-flow nasal oxygen, and she may need a pulmonary consult and echocardiogram. cc: Brandon Wheeler MD
[2018-09-21] MEDS: NORCO-7.5 PO PRN (22:03)
[2018-09-21] MEDS: CARDIZEM LA PO SCH (22:03)
[2018-09-22 00:24] LABS: URINE SOURCE CLEAN CATCH
[2018-09-22 00:33] LABS: BILIRUBIN URINE NEGATIVE (NEGATIVE); BLOOD URINE NEGATIVE (NEGATIVE); COLOR YELLOW; GLUCOSE URINE NEGATIVE (NEGATIVE); KETONE URINE NEGATIVE (NEGATIVE); LEUKOCYTES URINE NEGATIVE (NEGATIVE); NITRITE URINE NEGATIVE (NEGATIVE); PROTEIN URINE NEGATIVE (NEGATIVE); SP GRAVITY URINE 1.008; TURBIDITY URINE CLEAR (CLEAR); UROBILINOGEN URINE NORMAL (NORMAL)
[2018-09-22 00:35] LABS: UR EPITHELIAL CELLS <10 /HPF (<10); URINE BACTERIA 4+ /HPF; URINE RBC <10 /HPF (<10); URINE WBC <10 /HPF (<10)
[2018-09-22] MEDS: ALBUTEROL NEB INH SCH ×4 (03:32→21:17)
[2018-09-22] MEDS: NORCO-7.5 PO PRN (06:10)
[2018-09-22] MEDS: SYNTHROID PO SCH (06:11)
[2018-09-22] MEDS: CARDIZEM LA PO SCH ×2 (08:51→20:50)
[2018-09-22] MEDS ORDERED: LASIX PO SCH (09:00)
[2018-09-22] MEDS ORDERED: XARELTO PO SCH (09:00)
[2018-09-22] MEDS ORDERED: HYZAAR 100/12.5 MG TAB PO SCH (09:00)
[2018-09-23] MEDS: ALBUTEROL NEB INH SCH (03:40)
[2018-09-23] MEDS: SYNTHROID PO SCH (06:10)
[2018-09-23 07:52] VITALS: BP 118/58
--- NOTE | 2018-09-23 13:00 | DISCHARGE SUMMARY ---
ADMISSION DATE: 09/21/2018 DISCHARGE DATE: 09/23/2018 FINAL DIAGNOSES: 1. Acute diastolic congestive heart failure. 2. Chronic diastolic congestive heart failure. 3. Chronic atrial fibrillation with therapeutic anticoagulation. 4. History of essential hypertension. 5. Recent T6 vertebral compression fracture, status post kyphoplasty. 6. History of left mastectomy for breast cancer. 7. Reported hypoxemia. HISTORY OF PRESENT ILLNESS: Ms. Blanco is an 88-year-old woman who was admitted approximately a month ago with persistent thoracic pain found to be due to a recent T6 vertebral compression fracture. CT on a previous admission documented some retropulsion of the posterior fragment, and she was referred urgently to a neurosurgeon, Dr. Gordillo, in [place]. He apparently performed a kyphoplasty and restored much of the height that was lost from her vertebra. She continues to have some back pain, but it is improved. She was discharged from [facility] approximately 2 weeks ago with home oxygen and [facility]. The [facility] home nurse visited her on the day of admission and felt that her oxygen saturation was quite low in the 70s despite oxygen and sent her to the emergency room. In the emergency room, she had wildly variable O2 saturations, varying from 94% down to 70%. She had a physical examination that revealed a borderline tachycardia with irregular rhythm. Her extremities were somewhat cool and borderline cyanotic. On exam, lungs were mostly clear with a few sticky rhonchi in the left base. She had mild to moderate ankle edema. HOSPITAL COURSE: In the emergency room, a CT pulmonary arteriogram showed no pulmonary emboli. She was noted to have some cardiomegaly. CBC and chemistry profile were fairly unremarkable. ProBNP was elevated at 1144. She was admitted to Medical Floor and treated with intravenous Lasix for acute and chronic diastolic congestive heart failure. She had a good diuresis and lost several pounds of fluid weight. An echocardiogram from previous admission 1 month ago was reviewed and showed normal left ventricular function and chronic atrial fibrillation. Room air arterial blood gas showed adequate oxygenation with an oxygen saturation of 94% and a pO2 of 70 on room air. I suspect that her purported hypoxemia was due to artifactual difficulties due to her reduced finger perfusion. This morning, she is alert, comfortable, without shortness of breath and has tolerated greater than 36 hours off of oxygen here in the hospital. I feel she can return home safely. She is to return to my office in 8 to 14 days for transition of care visit. DISCHARGE MEDICATIONS: Furosemide 40 mg q.a.m., Synthroid 75 mcg daily, losartan/hydrochlorothiazide 100/12.5 one daily, Xarelto 10 mg q.a.m., Cardizem LA 120 mg every 12 hours, acetaminophen 650 mg q.4 hours p.r.n. for pain and Bluebell 7.5 one 3 times a day as needed for back pain. cc: Brandon Wheeler MD
== END 2018-09-23 09:48 | disposition home health service (06) | DRG 293 ==
LOC: ED 14:22 → EDIPHOLD 19:28 → 3N 20:15
PROVIDERS: ADMIT Internal Medicine; ATTEND Internal Medicine
CPT/HCPCS: 71020; 71046; 71275; 74175; 80053; 81001; 82805; 83880; 84484; 85025; 87077; 87088; 87186; 93005; 93306; 94640; 94761; 99285; A9270; J1940; Q9967